=== PATIENT | female | born 1965 | race African-American/Black ===

== ENCOUNTER 2018-06-10 06:11 | Inpatient (IN) | payer SELFPAY ==
[~2018-06-10] VITALS: Ht 170.2 cm; Wt 129.7 kg
[2018-06-10 07:37] LABS: CHLORIDE 110 mEq/L (98-107)
[2018-06-10] MEDS ORDERED: SODIUM CHLORIDE 0.9% 1,000 ML IV ONE (07:39)
[2018-06-10] MEDS ORDERED: MORPHINE SULFATE 4 MG/ML CPJ (NOT FOR IM USE) IV STA (07:39)
[2018-06-10] MEDS ORDERED: ONDANSETRON HCL 4MG/2ML INJ IV STA (07:39)
[2018-06-10 07:40] LABS: BASOPHILS % 0.2 % (0.0-2.0); EOSINOPHILS % 1.7 % (0.0-5.0); HEMATOCRIT. 31.8 % (36.0-48.0); HEMOGLOBIN. 10.3 g/dL (12.0-16.0); LYMPHOCYTES % 11.1 % (20.0-50.0); MEAN CORPUSCULAR HEMOGLOBIN 26.3 pg (28.0-32.0); MEAN CORPUSCULAR VOLUME 81.1 fL (81.0-99.0); MEAN PLATELET VOLUME 8.6 fl (7.4-10.4); MONOCYTES % 5.3 % (2.0-8.0); NEUTROPHILS % 81.7 % (40.0-76.0); PLATELET 229 x1000/uL (130-400); RED BLOOD CELL COUNT 3.93 mill/uL (4.2-5.4); RED CELL DISTRIBUTION WIDTH 15.9 % (11.6-14.6)
[2018-06-10] MEDS ORDERED: ASPIRIN 325MG TABLET PO ONE (08:00)
[2018-06-10] MEDS ORDERED: ENOXAPARIN 120MG/0.8ML SYR SUBCUT ONE (08:00)
[2018-06-10] MEDS ORDERED: FUROSEMIDE 40MG/4ML VIAL IVP NR (08:15)
[2018-06-10] MEDS ORDERED: MORPHINE SULFATE 10 MG/ML CPJ IV NR (08:20)
[2018-06-10] MEDS ORDERED: ENOXAPARIN 120MG/0.8ML SYR SUBCUT NR (09:45)
[2018-06-10] MEDS ORDERED: ENOXAPARIN 40MG/0.4ML SYR SUBCUT SCH (10:30)
[2018-06-10] MEDS ORDERED: MORPHINE SULFATE 2 MG/ML CPJ (NOT FOR IM USE) IV PRN (10:30)
[2018-06-10] MEDS ORDERED: ACETAMINOPHEN 325MG TABLET PO PRN (10:30)
[2018-06-10] MEDS ORDERED: ONDANSETRON HCL 4MG/2ML INJ IV PRN (10:30)
[2018-06-10 11:23] LABS: CLARITY URINE CLEAR (CLEAR); COLOR URINE YELLOW (YELLOW); KETONES URINE NEGATIVE (NEGATIVE); LEUKOCYTE ESTERASE URINE NEGATIVE (NEGATIVE); NITRITE URINE NEGATIVE (NEGATIVE); OCCULT BLOOD URINE TRACE (NEGATIVE); PROTEIN URINE NEGATIVE (NEGATIVE); SPECIFIC GRAVITY URINE 1.018 (1.005-1.030); UROBILINOGEN URINE 0.2 E.U./dL (0.2-1.0)
[2018-06-10 11:55] VITALS: BP 119/56
[2018-06-10 12:21] LABS: *AMPHETAMINES SCREEN URINE NEGATIVE (NEGATIVE); *BARBITURATES SCREEN URINE NEGATIVE (NEGATIVE); *BENZODIAZEPINES SCREEN URINE PRESUMTIVE POSITIVE (NEGATIVE)
[2018-06-10 12:22] LABS: *COCAINE SCREEN URINE NEGATIVE (NEGATIVE); CANNABINOID URINE SCREEN PRESUMTIVE POSITIVE (NEGATIVE); METHADONE URINE SCREEN NEGATIVE (NEGATIVE); OPIATES URINE SCREEN PRESUMTIVE POSITIVE (NEGATIVE); PHENCYCLIDINE URINE SCREEN NEGATIVE (NEGATIVE)
[2018-06-10] MEDS ORDERED: CLOPIDOGREL 75MG TABLET PO NR (13:00)
[2018-06-10] MEDS ORDERED: DEXTROSE 50% WATER 50ML SYRINGE IV PRN (13:00)
[2018-06-10] MEDS: GABAPENTIN 300MG CAPSULE PO SCH ×2 (13:22→21:56)
[2018-06-10] MEDS: HYDROCODONE/ACETAMINOPHEN 5/325MG TABLET PO PRN ×2 (13:25→21:57)
[2018-06-10] MEDS: NITROGLYCERIN OINT 1GM/INCH UDPKT TD SCH ×2 (13:26→17:56)
[2018-06-10] MEDS ORDERED: ATOR10TA69 PO (13:45)
[2018-06-10] MEDS ORDERED: LISI10TA5 PO (13:45)
[2018-06-10] MEDS ORDERED: METO100T16 PO (13:45)
[2018-06-10] MEDS ORDERED: RANI15SY PO (13:47)
[2018-06-10] MEDS ORDERED: ASPI-1159 PO (13:47)
[2018-06-10] MEDS ORDERED: ALPR-341 PO (13:47)
[2018-06-10] MEDS ORDERED: RIVA20TA PO (13:47)
[2018-06-10] MEDS ORDERED: INSU100I28 SQ ×2 (13:47→13:50)
[2018-06-10] MEDS ORDERED: CLOP75TA16 PO (13:47)
[2018-06-10] MEDS ORDERED: INSLIS SUBCUT (13:49)
[2018-06-10 14:00] VITALS: BP 122/57
[2018-06-10 16:00] VITALS: BP 109/66
[2018-06-10] MEDS: BLOOD SUGAR DIAGNOSTIC STRIP TEST SCH ×2 (16:12→21:57)
[2018-06-10] MEDS: INSULIN LISPRO 100 UNITS/ML SUBCUT SCH ×2 (16:39→22:46)
[2018-06-10] MEDS: IPRATROPIUM/ALBUTEROL 0.5-3(2.5)MG/3ML NEB HHN SCH ×2 (16:51→20:42)
[2018-06-10] MEDS ORDERED: METOPROLOL TARTRATE 25MG TABLET PO SCH (17:00)
[2018-06-10 17:28] LABS: INR 1.1; PROTHROMBIN TIME 11.1 sec (9.1-11.1)
[2018-06-10 17:43] LABS: CREATINE KINASE MB FRACTION 4.1 ng/mL (0.5-3.6)
[2018-06-10] MEDS: CALCIUM CARBONATE/VITAMIN D3 500MG TABLET PO SCH (17:55)
[2018-06-10 18:02] VITALS: BP 126/62
[2018-06-10] MEDS: ALPRAZOLAM 0.5 MG TABLET PO PRN (18:09)
[2018-06-10 20:33] VITALS: BP 136/77
[2018-06-10] MEDS ORDERED: ATORVASTATIN CALCIUM 20MG TABLET PO SCH (21:00)
[2018-06-10] MEDS ORDERED: RANOLAZINE 500 MG TAB.SR.12H PO SCH (21:00)
[2018-06-10] MEDS: ATORVASTATIN CALCIUM 40MG TABLET PO SCH (21:56)
[2018-06-10] MEDS: METOPROLOL TARTRATE 50MG TABLET PO SCH (21:56)
[2018-06-10] MEDS: FAMOTIDINE 20MG TABLET PO SCH (21:56)
[2018-06-10] MEDS: ENOXAPARIN 150MG/ML SYR SUBCUT SCH (21:58)
[2018-06-10 22:00] VITALS: BP 122/74
[2018-06-11] VITALS (12 sets, daily range): BP systolic 99–157; BP diastolic 31–92
[2018-06-11] MEDS: IPRATROPIUM/ALBUTEROL 0.5-3(2.5)MG/3ML NEB HHN SCH ×6 (04:00→20:48)
[2018-06-11] MEDS: BLOOD SUGAR DIAGNOSTIC STRIP TEST SCH ×4 (06:03→21:00)
[2018-06-11] MEDS: INSULIN LISPRO 100 UNITS/ML SUBCUT SCH ×4 (06:03→21:26)
[2018-06-11] MEDS: GABAPENTIN 300MG CAPSULE PO SCH ×3 (06:04→21:24)
[2018-06-11] MEDS: HYDROCODONE/ACETAMINOPHEN 5/325MG TABLET PO PRN ×3 (06:06→21:25)
[2018-06-11] MEDS: NITROGLYCERIN OINT 1GM/INCH UDPKT TD SCH ×4 (06:06→17:21)
[2018-06-11 07:49] LABS: BASOPHILS % 0.2 % (0.0-2.0); EOSINOPHILS % 1.7 % (0.0-5.0); HEMATOCRIT. 28.1 % (36.0-48.0); HEMOGLOBIN. 9.2 g/dL (12.0-16.0); LYMPHOCYTES % 18.3 % (20.0-50.0); MEAN CORPUSCULAR HEMOGLOBIN 26.4 pg (28.0-32.0); MEAN CORPUSCULAR VOLUME 80.4 fL (81.0-99.0); MEAN PLATELET VOLUME 8.8 fl (7.4-10.4); MONOCYTES % 7.5 % (2.0-8.0); NEUTROPHILS % 72.3 % (40.0-76.0); PLATELET 191 x1000/uL (130-400); RED BLOOD CELL COUNT 3.49 mill/uL (4.2-5.4); RED CELL DISTRIBUTION WIDTH 15.2 % (11.6-14.6)
[2018-06-11 07:57] LABS: CHLORIDE 109 mEq/L (98-107)
[2018-06-11 08:03] LABS: LDL CHOLESTEROL 95 mg/dL (5-100)
[2018-06-11 08:05] LABS: HDL CHOLESTEROL 39 mg/dL (40-59)
[2018-06-11] MEDS ORDERED: BENZONATATE 200MG CAPSULE PO NR (08:15)
[2018-06-11] MEDS ORDERED: CLOPIDOGREL 75MG TABLET PO SCH (09:00)
[2018-06-11] MEDS: CALCIUM CARBONATE/VITAMIN D3 500MG TABLET PO SCH ×2 (09:38→17:20)
[2018-06-11] MEDS: DOCUSATE SODIUM 250MG CAPSULE PO SCH (09:38)
[2018-06-11] MEDS: CLOPIDOGREL 75MG TABLET PO SCH (09:38)
[2018-06-11] MEDS: ASPIRIN 81MG EC TABLET PO SCH (09:38)
[2018-06-11] MEDS: FAMOTIDINE 20MG TABLET PO SCH ×2 (09:39→21:24)
[2018-06-11] MEDS: METOPROLOL TARTRATE 50MG TABLET PO SCH ×2 (09:39→21:28)
[2018-06-11] MEDS: ENOXAPARIN 150MG/ML SYR SUBCUT SCH ×2 (09:39→21:29)
[2018-06-11] MEDS: LISINOPRIL 2.5MG TABLET PO SCH (09:40)
[2018-06-11 09:44] LABS: BG CARBOXYHEMOGLOBIN 0.8 % (0.5-1.5); BG DEOXYHEMOGLOBIN 4.1 % (0.0-5.0); BG FRACTION INSPIRED OXYGEN 21; BG HCO3 ACT 26.8 mmol/L (22.0-26.0); BG METHEMOGLOBIN 0.2 % (0.0-1.5); BG OXYGEN SATURATION 95.9 % (92.0-98.5); BG OXYHEMOGLOBIN 94.9 % (94.0-97.0); BG PCO2 42.9 mmHg (35.0-45.0); BG PH 7.414 (7.350-7.450); BG PO2 80.2 mmHg (75.0-100.0); BG SAMPLE SITE RIGHT RADIAL; BG TOTAL HEMOGLOBIN 10.1 g/dL (12.0-18.0); BG VENT MODE ROOM AIR
[2018-06-11] MEDS: ATORVASTATIN CALCIUM 40MG TABLET PO SCH (21:24)
[2018-06-11] MEDS: ALPRAZOLAM 0.5 MG TABLET PO PRN (21:53)
[2018-06-12] VITALS (13 sets, daily range): BP systolic 94–159; BP diastolic 48–95
[2018-06-12] MEDS: NITROGLYCERIN OINT 1GM/INCH UDPKT TD SCH ×2 (00:18→06:03)
[2018-06-12] MEDS: IPRATROPIUM/ALBUTEROL 0.5-3(2.5)MG/3ML NEB HHN SCH ×4 (04:00→20:00)
[2018-06-12] MEDS: BENZONATATE 100MG CAPSULE PO PRN ×2 (05:23→20:59)
[2018-06-12] MEDS: HYDROCODONE/ACETAMINOPHEN 5/325MG TABLET PO PRN ×3 (05:35→21:01)
[2018-06-12] MEDS: GABAPENTIN 300MG CAPSULE PO SCH ×3 (06:03→21:00)
[2018-06-12 06:23] LABS: BASOPHILS % 0.4 % (0.0-2.0); EOSINOPHILS % 2.2 % (0.0-5.0); HEMATOCRIT. 27.7 % (36.0-48.0); HEMOGLOBIN. 9.1 g/dL (12.0-16.0); LYMPHOCYTES % 24.9 % (20.0-50.0); MEAN CORPUSCULAR VOLUME 79.6 fL (81.0-99.0); MEAN PLATELET VOLUME 8.6 fl (7.4-10.4); NEUTROPHILS % 62.5 % (40.0-76.0); PLATELET 180 x1000/uL (130-400); RED BLOOD CELL COUNT 3.48 mill/uL (4.2-5.4); RED CELL DISTRIBUTION WIDTH 15.2 % (11.6-14.6)
[2018-06-12 06:42] LABS: CHLORIDE 108 mEq/L (98-107)
[2018-06-12] MEDS: BLOOD SUGAR DIAGNOSTIC STRIP TEST SCH ×4 (06:50→20:58)
[2018-06-12] MEDS ORDERED: MONTELUKAST SODIUM 10MG TABLET PO NR (08:00)
[2018-06-12] MEDS ORDERED: FUROSEMIDE 20MG/2ML VIAL IVP SCH (09:00)
[2018-06-12] MEDS: FAMOTIDINE 20MG TABLET PO SCH ×2 (09:31→21:00)
[2018-06-12] MEDS: LISINOPRIL 2.5MG TABLET PO SCH (09:31)
[2018-06-12] MEDS: CLOPIDOGREL 75MG TABLET PO SCH (09:31)
[2018-06-12] MEDS: ASPIRIN 81MG EC TABLET PO SCH (09:31)
[2018-06-12] MEDS: DOCUSATE SODIUM 250MG CAPSULE PO SCH (09:32)
[2018-06-12] MEDS: METOPROLOL TARTRATE 50MG TABLET PO SCH ×2 (09:32→21:00)
[2018-06-12] MEDS: CALCIUM CARBONATE/VITAMIN D3 500MG TABLET PO SCH ×2 (09:32→17:32)
[2018-06-12] MEDS: ENOXAPARIN 150MG/ML SYR SUBCUT SCH (09:33)
[2018-06-12] MEDS: FLUTICASONE PROPIONATE 50MCG/SPRAY BOTTLE BOTHNSTRLS SCH ×2 (09:33→21:46)
[2018-06-12] MEDS: INSULIN LISPRO 100 UNITS/ML SUBCUT SCH ×5 (09:45→20:59)
[2018-06-12] MEDS: INSULIN GLARGINE UD 100 UNITS/ML SYR SUBCUT SCH (09:46)
[2018-06-12] MEDS: ALPRAZOLAM 0.5 MG TABLET PO PRN ×2 (11:02→21:13)
[2018-06-12] MEDS: RANOLAZINE 500 MG TAB.SR.12H PO SCH (20:59)
[2018-06-12] MEDS: ATORVASTATIN CALCIUM 40MG TABLET PO SCH (20:59)
[2018-06-12] MEDS: FUROSEMIDE 40MG TABLET PO SCH (21:02)
[2018-06-13] VITALS (8 sets, daily range): BP systolic 112–142; BP diastolic 65–90
[2018-06-13] MEDS: GABAPENTIN 300MG CAPSULE PO SCH ×2 (05:21→13:25)
[2018-06-13] MEDS: BLOOD SUGAR DIAGNOSTIC STRIP TEST SCH ×2 (06:50→11:50)
[2018-06-13] MEDS: DOCUSATE SODIUM 250MG CAPSULE PO SCH (08:12)
[2018-06-13] MEDS: FAMOTIDINE 20MG TABLET PO SCH (08:12)
[2018-06-13] MEDS: RANOLAZINE 500 MG TAB.SR.12H PO SCH (08:12)
[2018-06-13] MEDS: CALCIUM CARBONATE/VITAMIN D3 500MG TABLET PO SCH (08:12)
[2018-06-13] MEDS: ALPRAZOLAM 0.5 MG TABLET PO PRN (08:12)
[2018-06-13] MEDS: ASPIRIN 81MG EC TABLET PO SCH (08:12)
[2018-06-13] MEDS: CLOPIDOGREL 75MG TABLET PO SCH (08:12)
[2018-06-13] MEDS: LISINOPRIL 2.5MG TABLET PO SCH (08:13)
[2018-06-13] MEDS: FUROSEMIDE 40MG TABLET PO SCH (08:13)
[2018-06-13] MEDS: METOPROLOL TARTRATE 50MG TABLET PO SCH (08:13)
[2018-06-13] MEDS: INSULIN LISPRO 100 UNITS/ML SUBCUT SCH ×2 (08:14→13:25)
[2018-06-13] MEDS: FLUTICASONE PROPIONATE 50MCG/SPRAY BOTTLE BOTHNSTRLS SCH (08:17)
[2018-06-13] MEDS: BENZONATATE 100MG CAPSULE PO PRN (08:17)
[2018-06-13] MEDS ORDERED: ENOXAPARIN 30MG/0.3ML SYR SUBCUT SCH (09:00)
[2018-06-13] MEDS: HYDROCODONE/ACETAMINOPHEN 5/325MG TABLET PO PRN (11:44)
[2018-06-13] MEDS: INSULIN GLARGINE UD 100 UNITS/ML SYR SUBCUT SCH (11:45)
== END 2018-06-13 16:43 | disposition home or self-care (01) | DRG 190 ==
LOC: ER 06:11 → 3WST 08:17 → ENRESERV 10:52
PROVIDERS: ADMIT Internal Medicine Geriatric Medicine; ATTEND Internal Medicine Geriatric Medicine
DX: I21.4 Non-ST elevation (NSTEMI) myocardial infarction (principal); N17.9 Acute kidney failure, unspecified; E11.22 Type 2 diabetes mellitus with diabetic chronic kidney disease; I13.0 Hypertensive heart and chronic kidney disease with heart failure and stage 1 through stage 4 chronic kidney disease, or unspecified chronic kidney disease; I50.9 Heart failure, unspecified; N18.9 Chronic kidney disease, unspecified; I48.2 Chronic atrial fibrillation; I48.0 Paroxysmal atrial fibrillation; D63.8 Anemia in other chronic diseases classified elsewhere; E66.09 Other obesity due to excess calories; E78.00 Pure hypercholesterolemia, unspecified; F41.0 Panic disorder [episodic paroxysmal anxiety]; G89.4 Chronic pain syndrome; N39.0 Urinary tract infection, site not specified; I25.10 Atherosclerotic heart disease of native coronary artery without angina pectoris; J31.0 Chronic rhinitis; K64.9 Unspecified hemorrhoids; M79.7 Fibromyalgia; Z79.01 Long term (current) use of anticoagulants; Z79.4 Long term (current) use of insulin; Z86.718 Personal history of other venous thrombosis and embolism; I25.2 Old myocardial infarction; Z90.49 Acquired absence of other specified parts of digestive tract; Z95.5 Presence of coronary angioplasty implant and graft; Z68.41 Body mass index [BMI] 40.0-44.9, adult; Z95.1 Presence of aortocoronary bypass graft; Z98.891 History of uterine scar from previous surgery; Z79.899 Other long term (current) drug therapy; Z79.82 Long term (current) use of aspirin; Z59.0 Homelessness; Z86.73 Personal history of transient ischemic attack (TIA), and cerebral infarction without residual deficits
CPT/HCPCS: 36415; 36600; 71045; 80048; 80061; 80305; 82270; 82375; 82553; 82805; 82962; 83036; 83880; 84443; 84484; 85379; 93005; 93306; 93970; 94640; 96372; 96374; 96375; 97162; 99291; J1650; J1815; J1940; J2270; J2405; J7030; J7620